=== PATIENT | male | born 1935 | race Caucasian/White ===

== ENCOUNTER 2016-07-20 10:14 | Inpatient (IN) | payer MEDICARE, OTHER ==
[~2016-07-20] VITALS: Ht 165.1 cm; Wt 75.2 kg
[2016-07-20] VITALS (8 sets, daily range): BP systolic 134–162; BP diastolic 52–87; PULSE 73–84; RESP 17–20; TEMP 96.8–98.1; O2SAT 92–97
[~2016-07-20 10:14] MED LIST: AMIT25TA9 PO; BIOT50005 PO; CLOB-23 TOPICAL; CO-EPOW; DILT120C15; GALA4TAB PO; IBUP200C PO; ISOS60TA PO; LEVO.125 PO; MIRA50TA PO; MULTTAB6; NITR0.4S SL; PLAV75TA29 PO; ROSU1TAB6 PO; ZETI10TA5 PO
[2016-07-20] MEDS ORDERED: ceFAZolin 2 GM PREMIX 50 ML IV SCH (11:00)
[2016-07-20 12:05] LABS: AUTOMATED NEUTROPHIL # 3.5 TH/MM3 (1.8-7.7); BASOPHIL % 0.7 % (0.0-2.0); EOSINOPHIL # 0.2 TH/MM3 (0-0.4); EOSINOPHIL % 3.7 % (0.0-4.0); HEMATOCRIT 38.4 % (39.0-51.0); HEMO FLAGS DIFF FINAL; LYMPH % 26.8 % (9.0-44.0); LYMPHOCYTE # 1.6 TH/MM3 (1.0-4.8); MEAN CELL VOLUME 90.9 FL (80.0-100.0); MEAN CORPUSCULAR HEMOGLOBIN 30.8 PG (27.0-34.0); MEAN CORPUSCULAR HGB CONC 33.8 % (32.0-36.0); MONO % 10.1 % (0.0-8.0); NEUT % 58.7 % (16.0-70.0); PLATELET COUNT 394 TH/MM3 (150-450); RED BLOOD COUNT 4.22 MIL/MM3 (4.50-5.90)
[2016-07-20 12:17] LABS: APTT (PATIENT) 25.6 SEC (24.3-30.1); PROTHROMBIN TIME - PATIENT 10.6 SEC (9.8-11.6)
[2016-07-20] MEDS ORDERED: fentaNYL CITRATE 250 MCG/5 ML AMP ONE (13:25)
[2016-07-20] MEDS ORDERED: MIDAZOLAM HCL 5 MG/5 ML VIAL ONE (13:25)
[2016-07-20] MEDS ORDERED: ONDANSETRON HCL 4 MG/2 ML VIAL IV PRN (15:00)
[2016-07-20] MEDS ORDERED: ACETAMINOPHEN 325 MG TAB PO PRN (15:00)
--- NOTE | 2016-07-20 15:10 | RADRPT ---
EXAM DATE/TIME: 07/20/2016 14:25 [facility] COMPARISON: No previous studies available for comparison. 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 MEDICAL HISTORY : History of TIA, CAD, HTN, hypothyroidism, prostate cancer. SURGICAL HISTORY : History of CABG, back surgery, hernia repair, colonoscopy, cataract removal. ENCOUNTER: Initial ACUITY: > 1 year PAIN SCORE: 0/10 LUMBAR PUNCTURE TIME: 1356 hours FLUORO TIME: 2.8 minutes IMAGE SERIES: 1 SEDATION TIME: 30 minutes ACCESS LEVEL: L2-3 FLUID: 10 cc of clear CSF was collected and sent to the laboratory for analysis. SEDATION: 1.) 2 mg midazolam (Versed) IV 2.) 100 mcg fentanyl (Sublimaze) IV PROCEDURE : 1. Fluoroscopic guided lumbar puncture. The risks, benefits and alternatives to the procedure were explained and verbal and written consent w as obtained. The site was prepped in sterile fashion. Full sterile technique was used, including ca p, mask, sterile gloves and gown and a large sterile sheet. Hand hygiene and 2% chlorhexidine and/or betadine/alcohol prep was utilized per protocol for cutaneous antisepsis. The skin and subcutaneous tissues were infiltrated with local anesthetic solution. With fluoroscopic guidance the lumbar thecal sac was punctured at the level above. The fluid describ ed above was removed without difficulty. The patient tolerated the procedure well and there were no complications. CONCLUSION: Uncomplicated fluoroscopically guided lumbar puncture. Santiago De La Rosa MD on July 20, 2016 at 15:09 Board Certified Radiologist. This report was verified electronically.
--- NOTE | 2016-07-20 15:10 | RADRPT ---
EXAM DATE/TIME: 07/20/2016 14:25 [facility] COMPARISON: No previous studies available for comparison. INDICATIONS : Patient is in need of placement of a lumbar drain due to NPH. MEDICAL HISTORY : History of TIA, CAD, HTN, hypothyroidism, prostate cancer. SURGIAL HISTORY : History of CABG, back surgery, hernia repair, colonoscopy, cataract removal. ENCOUNTER: Initial ACUITY: >1 year PAIN SCORE: 0/10 LUMBAR PUNCTURE TIME: 1356 hours FLUORO TIME: 2.8 minutes IMAGE SERIES: 1 SEDATION TIME: 30 minutes LEVEL: Tip of lumbar drain was placed at S1 FLUID: 10 cc of clear CSF was collected and sent to the laboratory for analysis. MEDICATION(S): 1.) 2 mg midazolam (Versed) IV 2.) 100 mcg fentanyl (Sublimaze) IV DEVICE(S): 1.) 5 [place]olan lumbar drain catheter PROCEDURE : 1. Fluoroscopically guided lumbar drain placement. 2. Conscious sedation with continuous EKG and oximetry monitoring. The risks, benefits and alternatives to the procedure were explained and verbal and written consent w as obtained. The site was prepped in sterile fashion. Full sterile technique was used, including ca p, mask, sterile gloves and gown and a large sterile sheet. Hand hygiene and 2% chlorhexidine and/or betadine/alcohol prep was utilized per protocol for cutaneous antisepsis. The skin and subcutaneous tissues were infiltrated with local anesthetic solution. With fluoroscopic guidance the lumbar thecal sac was punctured with a 14 gauge Touhy needle and a lum bar drain was placed with its tip at the level as described above and the catheter was sutured in long ce. CSF was identified returning from the catheter at the termination of the procedure. Conscious sedation was performed with the prescribed dosages and duration as above in the presence of an independent trained radiology nurse to assist in the monitoring of the patient. EKG and oximetry remained stable throughout the procedure. The patient tolerated the procedure well and there were n o complications. The patient was sent to post anesthesia recovery in stable condition. CONCLUSION: Uncomplicated lumbar drain placement as above. Santiago De La Rosa MD on July 20, 2016 at 15:08 Board Certified Radiologist. This report was verified electronically.
[2016-07-20 15:44] LABS: GROSS BLOOD TUBE #1 0 (0); GROSS BLOOD TUBE #2 0 (0); GROSS BLOOD TUBE #3 0 (0); SUPERNATE COLOR TUBE #1 CLEAR (CLEAR); SUPERNATE COLOR TUBE #2 CLEAR (CLEAR); SUPERNATE COLOR TUBE #3 CLEAR (CLEAR); SUPERNATE COLOR TUBE #4 CLEAR (CLEAR); VOLUME TUBE # 1 1.5 ML; VOLUME TUBE # 2 2.5 ML
[2016-07-20 15:45] LABS: CSF LYMPHOCYTES 79 %; CSF MONOCYTES 12 %; CSF NEUTROPHILS 9 %; WBC TUBE #4 9 /MM3 (0-10)
[2016-07-20 15:47] LABS: GROSS BLOOD TUBE #4 0 (0)
[2016-07-20] MEDS: SODIUM CHLOR 0.45% 1000 ML IV SCH (16:30)
[2016-07-21] VITALS: BP 147/73; PULSE 78; RESP 20; TEMP 97.8; O2SAT 94
[2016-07-21 08:42] VITALS: BP 105/57; PULSE 76; RESP 18; TEMP 97.9; O2SAT 95
[2016-07-21] MEDS: SODIUM CHLOR 0.45% 1000 ML IV SCH (10:49)
[2016-07-21 12:00] VITALS: BP 151/82; PULSE 61; RESP 18; TEMP 96.7; O2SAT 95
[2016-07-21 16:00] VITALS: BP 141/58; PULSE 79; RESP 18; TEMP 95.7; O2SAT 96
[2016-07-21] MEDS ORDERED: IBUPROFEN 200 MG TAB PO PRN (18:00)
[2016-07-21] MEDS ORDERED: NITROGLYCERIN 0.4 MG SL 25 TABS/BTL SL PRN (18:00)
[2016-07-21 20:00] VITALS: BP 173/89; PULSE 74; RESP 20; TEMP 97.3; O2SAT 95
[2016-07-21] MEDS ORDERED: CLOBETASOL TOPICAL SCH (21:00)
[2016-07-21] MEDS ORDERED: TOLTERODINE TARTRATE 4 MG CAP LA PO SCH (21:00)
[2016-07-21] MEDS: AMITRIPTYLINE HCL 25 MG TAB PO SCH (21:33)
[2016-07-21] MEDS: TOLTERODINE TARTRATE 4 MG CAP LA PO SCH (22:50)
[2016-07-21] MEDS: EZETIMIBE 10 MG TAB PO SCH (22:50)
[2016-07-21] MEDS: GALANTAMINE HYDROBROMIDE 4 MG TAB PO SCH (22:50)
--- NOTE | 2016-07-21 22:58 | HHI.NSPN ---
History Chief Complaint: no complaints Interval History 81-year-old male with progressive gait difficulty. Some memory loss and cognitive dysfunction. Recent imaging studies reveal moderate ventriculomegaly. Admitted for lumbar subarachnoid drain trial Exam Results Vital Signs Date Time Temp Pulse Resp B/P Pulse Ox O2 Delivery O2 Flow Rate FiO2 07/21/16 20:00 97.3 74 20 173/89 95 07/20/16 16:30 Room Air Intake and Output 07/20/16 07/20/16 07/21/16 08:00 16:00 00:00 Intake Total 444 ml Output Total 30 ml Balance 414 ml Physical Examination Respirations clear and regular Pulse regular Abdomen soft No extremity edema Sensation intact by touch all extremities Strength within normal limits all extremities Lumbar drain in place-functioning well. Clear CSF. Lab, Micro, Other Results Laboratory Tests Test 07/20/16 07/20/16 11:45 14:01 Red Blood Count 4.22 MIL/MM3 (4.50-5.90) Hematocrit 38.4 % (39.0-51.0) Monocytes (%) (Auto) 10.1 % (0.0-8.0) CSF RBC (Tube 4) 46 /MM3 (NONE) CSF Total Protein 54.4 MG/DL (15.0-45.0) Medical Decision Making Impression and Plan Impression: 1. Hydrocephalus. Possible NPH. 2. Hypertension Plan: Findings were discussed with the patient. He feels that his mentation has actually improved with the shunt in place. He states that he was able to converse fluently this morning. He usually has speech hesitancy. He states that his walking also seem to be improved. Physical therapy note is reviewed. Continued lumbar subarachnoid drain trial. Jasper White MD July 21, 2016 22:58
[2016-07-22] VITALS: BP 118/71; PULSE 70; RESP 20; TEMP 97; O2SAT 96
[2016-07-22 04:00] VITALS: BP 128/62; PULSE 75; RESP 20; TEMP 96; O2SAT 93
[2016-07-22] MEDS: LEVOTHYROXINE SODIUM 125 MCG TAB PO SCH (05:47)
[2016-07-22 08:00] VITALS: BP 123/72; PULSE 82; RESP 18; TEMP 97; O2SAT 96
[2016-07-22] MEDS: DILTIAZEM-CD 120 MG CAP ER PO SCH (08:21)
[2016-07-22] MEDS: GALANTAMINE HYDROBROMIDE 4 MG TAB PO SCH ×2 (08:22→20:55)
[2016-07-22] MEDS: EZETIMIBE 10 MG TAB PO SCH (08:22)
[2016-07-22] MEDS: ISOSORBIDE MONONITRATE 60 MG TAB PO SCH (08:22)
[2016-07-22] MEDS: SODIUM CHLOR 0.45% 1000 ML IV SCH (11:19)
[2016-07-22 12:00] VITALS: BP 96/53; PULSE 74; RESP 18; TEMP 97; O2SAT 96
--- NOTE | 2016-07-22 14:59 | HHI.NSPN ---
([facility]) Note Status Status: Progress Note ([facility]) Interval History Interval History 07/21: 81-year-old male with progressive gait difficulty. Some memory loss and cognitive dysfunction. Recent imaging studies reveal moderate ventriculomegaly. Admitted for lumbar subarachnoid drain trial 07/20. 07/22: Patient states he is doing good when seen this afternoon. He denies any headache. Nursing reports difficulty trying to keep the lumbar subarachnoid drain leveled due to the variable CSF output every 2 hours. Nursing reported that Physical Therapy reported that the patient's gait is better and not the wide gait he had. Physical Therapy had some concerns that the patient's left arm was not moving as it should when ambulating. ([facility]) Labs, Micro, & Vital Signs Constitutional Vital Signs Date Time Temp Pulse Resp B/P Pulse Ox O2 Delivery O2 Flow Rate FiO2 07/22/16 12:00 97.0 74 18 96/53 96 07/22/16 08:37 Room Air 07/22/16 08:00 97.0 82 18 123/72 96 07/22/16 04:00 96.0 75 20 128/62 93 07/22/16 00:00 97.0 70 20 118/71 96 07/21/16 20:00 97.3 74 20 173/89 95 07/21/16 16:00 95.7 79 18 141/58 96 07/22/16 07:00 Intake Total 1302 ml Output Total 1000 ml Balance 302 ml ([facility]) Review of Systems/Exam ROS Constitutional: The patient denies any fever or chills. Respiratory: The patient denies any shortness of breath or productive cough. Cardiac: The patient denies any chest pain, palpitations or irregular heartbeat. Gastrointestinal: The patient denies any abdominal pain, nausea or vomiting. Extremities: The patient denies any weakness or pain to the extremities. Back: The patient denies any back pain. Neurological: The patient states that initially his confusion improved but now it seems to be back where it was. He denies any headache, dizziness, numbness or tingling. Exam General: Resting comfortably, NAD. HEENT: Normocephalic, atraumatic. Respiratory: CTAB w/o W/R/R, equal excursion, non-laboured, on RA. Cardiovascular: S1S2 w/RRR w/o M/G/R, radial & pedal pulses 2+ bilaterally, cap refill < 2 sec, no pedal edema. Gastrointestinal: Abdomen soft, nontender, positive bowel sounds. Extremities: [place], NTTP, no evident deformity, discolouration or clubbing. Back: NTTP, lumbar subarachnoid drain in place w/clear CSF draining into collection system. Neurological: AAOx3 Speech clear & appropriate Sensation grossly intact to light touch to all extremities Motor strength 5/5 to all major flexion & extension muscle groups (Otf Guallpa) Medications Current Medications Current Medications Medications (Trade) Dose Ordered Sig/Nicolette Route Start Time Stop Time Status Last Admin (03/01 NS 1000 ml Inj) 1,000 ml @ 30 mls/hr Q24H IV 07/20/16 11:00 07/21/16 10:49 (Tylenol) 650 mg Q4H PRN PO 07/20/16 15:00 07/21/16 10:53 (Zofran Inj) 4 mg Q6H PRN IV 07/20/16 15:00 (Elavil) 25 mg HS PO 07/21/16 21:00 07/21/16 21:33 (Zetia) 10 mg DAILY PO 07/21/16 21:00 07/22/16 08:22 (Razadyne) 4 mg BID PO 07/21/16 21:00 07/22/16 08:22 (Advil) 200 mg Q6H PRN PO 07/21/16 18:00 (Imdur) 60 mg DAILY PO 07/22/16 09:00 07/22/16 08:22 (Synthroid) 125 mcg DAILY@06 PO 07/22/16 06:00 07/22/16 05:47 (Nitrostat Sl) 0.4 mg Q5M PRN SL 07/21/16 18:00 Patient Own Medication PT OWN MED: CORMAX (CLOBETAS... BID TOPICAL 07/21/16 21:00 Hold (Detrol La) 4 mg Q24H PO 07/21/16 22:00 07/21/16 22:50 (Cardizem Cd) 120 mg DAILY PO 07/22/16 09:00 07/22/16 08:21 (Otf Guallpa) Medical Decision Making MDM Remarks Impression: 1. Hydrocephalus. Possible NPH. 2. Hypertension Today Physical Therapy recommended home with no skilled needs The patient feels that his mentation may be back at what it was before the drain was placed although no hesitancy was noticed in his speech. He does feel his ambulation is better. Physical Therapy commented that the wide stance has resolved when ambulating. Some concern was expressed with how the left arm is during ambulation. (Otf Guallpa) Plan Plan Remarks Continue physical therapy. Continue lumbar subarachnoid drain trial. (Otf Guallpa) Attending Statement I have personally seen and examined the patient on 07/22/16. Pertinent documentation and study results have been reviewed by the undersigned. I have personally developed the treatment plan and performed medical decision making. Agree with findings, exam, and treatment plan as noted above. No headaches. States overall no definite change in his mentation compared to prior to the drain placement. His walking seems a little better. Plan discontinuation of the lumbar subarachnoid drain 07/23/16 with discharge home with no problems arise. Discussed home physical therapy with the patient which he declines at this time. (Jasper White MD) Otf [facility] July 22, 2016 14:59 Jasper White MD July 22, 2016 20:16
[2016-07-22 16:00] VITALS: BP 114/61; PULSE 72; RESP 18; TEMP 97.8; O2SAT 97
[2016-07-22 20:15] VITALS: BP 99/56; PULSE 70; RESP 19; TEMP 97.7; O2SAT 97
[2016-07-22] MEDS: TOLTERODINE TARTRATE 4 MG CAP LA PO SCH (20:55)
[2016-07-22] MEDS: AMITRIPTYLINE HCL 25 MG TAB PO SCH (20:55)
[2016-07-23] VITALS: BP 100/60; PULSE 66; RESP 18; TEMP 98; O2SAT 98
[2016-07-23 04:15] VITALS: BP 99/58; PULSE 69; RESP 20; TEMP 97.9; O2SAT 98
[2016-07-23] MEDS: LEVOTHYROXINE SODIUM 125 MCG TAB PO SCH (05:00)
[2016-07-23 08:10] VITALS: BP 124/64; PULSE 73; RESP 18; TEMP 96.3; O2SAT 96
[2016-07-23] MEDS: GALANTAMINE HYDROBROMIDE 4 MG TAB PO SCH (08:31)
[2016-07-23] MEDS: ISOSORBIDE MONONITRATE 60 MG TAB PO SCH (08:31)
[2016-07-23] MEDS: EZETIMIBE 10 MG TAB PO SCH (08:31)
[2016-07-23] MEDS: DILTIAZEM-CD 120 MG CAP ER PO SCH (08:31)
[2016-07-23] MEDS: SODIUM CHLOR 0.45% 1000 ML IV SCH (08:37)
[2016-07-23 11:55] VITALS: BP 118/58; PULSE 68; RESP 18; TEMP 97; O2SAT 97
[2016-07-23 15:50] VITALS: BP 112/54; PULSE 73; RESP 18; TEMP 97.3; O2SAT 96
--- NOTE | 2016-07-23 16:18 | HHI.DCPOC ---
Discharge Care Plan Diagnosis: (1) Hydrocephalus Your Health Problems Are: Incision/Drains Additional Problems Difficulty with ambulation Memory loss/confusion Goals to Promote Your Health * To prevent worsening of your condition and complications * To maintain your health at the optimal level Directions to Meet Your Goals Take your medications as prescribed Follow your dietary instruction Follow activity as directed Keep your appointments as scheduled Take your immunizations and boosters as scheduled If your symptoms worsen call your PCP, if no PCP go to Urgent Care Center or Emergency Room Smoking is Dangerous to Your Health. Avoid second hand smoke Call the 24-hour hour crisis hotline for domestic abuse at [facility] July 23, 2016 16:18
--- NOTE | 2016-07-23 16:23 | HHI.DS ---
Discharge Summary Admission Date July 20, 2016 at 16:50 Discharge Date: July 23, 2016 Admitting Diagnosis (1) Hydrocephalus Diagnosis: Principal ICD Code: G91.9 Procedures Procedure (): Lumbar subarachnoid drain placement CBC/BMP: 07/20/16 1145 Hospital Course The patient presented to [facility] on for placement of a lumbar subarachnoid drain for evaluation of NPH. He did well and his ambulation improved after placement although the patient thought his confusion/mentation remained the same. The drain was removed on and he did well after removal, therefore he was discharged home. Pt Condition on Discharge: Good Discharge Disposition: Discharge Home Discharge Instructions DIET: Follow Instructions for: As Tolerated, No Restrictions ACTIVITIES You can perform: Weight Bearing As John Paul Activities to Avoid: Lifting/Bending, Strenuous Activity Additional Information Follow up with Dr White in 1-2 weeks. Otf Guallpa July 23, 2016 16:23
[2016-08-13] MEDS ORDERED: MULT1TAB46 (13:19)
[2016-08-13] MEDS ORDERED: BIOTCAP PO (13:19)
== END 2016-07-23 19:07 | disposition home or self-care (01) | DRG 57 ==
LOC: HROP 10:14 → HRIP 10:15 → HROP 16:49 → N05B 16:50
PROVIDERS: ADMIT Neurological Surgery; ATTEND Neurological Surgery
PROC: 009U30Z Drainage of Spinal Canal with Drainage Device, Percutaneous Approach (ICD-10-PCS; principal; 2016-07-20)
DX: G91.2 (Idiopathic) normal pressure hydrocephalus (principal); G93.89 Other specified disorders of brain; G91.9 Hydrocephalus, unspecified; I10 Essential (primary) hypertension; I25.10 Atherosclerotic heart disease of native coronary artery without angina pectoris; E03.9 Hypothyroidism, unspecified; Z86.73 Personal history of transient ischemic attack (TIA), and cerebral infarction without residual deficits; Z85.46 Personal history of malignant neoplasm of prostate; Z95.1 Presence of aortocoronary bypass graft
CPT/HCPCS: 62270; 63741; 77003; 82945; 84157; 85025; 85610; 85730; 87015; 87070; 87102; 87116; 87205; 87206; 89051; 99152; 99153; C1755; J2250; J3010

== ENCOUNTER 2016-12-08 15:12 | Emergency (ER) | payer MEDICARE, OTHER ==
[~2016-12-08] VITALS: Ht 167.6 cm; Wt 74.3 kg
[~2016-12-08 15:12] MED LIST changes: -BIOT50005 PO; +BIOTCAP PO; +MULT1TAB46
[2016-12-08 15:17] VITALS: BP 183/80; PULSE 68; RESP 16; TEMP 98; O2SAT 97
--- NOTE | 2016-12-08 15:48 | PD ---
HPI Chief Complaint: Pain: Acute or Chronic Time Seen by Provider: 15:48 Travel History International Travel<30 days: No Contact w/Intl Traveler<30days: No Traveled to known affect area: No History of Present Illness HPI 81-year-old male presents to the emergency department for evaluation of left hip pain. Patient also reports vomiting. He states he vomited last night 4 times. He has not had any vomiting since. He has been able to eat. The patient states that he was getting up from a chair today when he had pain in his back that radiated to his left hip. He states that now he only has pain in his left hip, not his back. He does report history of chronic back pain and hip pain. However, this is worse than normal. He takes hydrocodone for pain which he took at 11 AM. He states that this did not take away his pain. He denies any fevers or chills. No chest pain or shortness of breath. No abdominal pain. No diarrhea or constipation. Patient states he is able to ambulate without difficulty. He states that frequent position changes to help his pain. Patient denies any loss of range of motion. He does report history of back surgery. He is currently on Plavix due to her history of cardiac bypass. PFSH Past Medical History Hx Anticoagulant Therapy: Yes (PLAVIX) Arthritis: Yes (UPPER BACK ) Asthma: No Atrial Fibrillation: Yes Autoimmune Disease: No Heart Rhythm Problems: No Cardiac Catheterization: Yes Cardiovascular Problems: Yes High Cholesterol: Yes (CONTROLLED WITH MEDICATION) Chest Pain: No Congestive Heart Failure: No COPD: No Cerebrovascular Accident: Yes (TIA, JUNE 2012, NOVEMBER 2015) Coronary Artery Disease: Yes Diabetes: No Diminished Hearing: No Endocrine: Yes GERD: No Genitourinary: Yes (OVERACTIVE BLADDER) Hepatitis: No Hiatal Hernia: No Hypertension: Yes (denies at present) Immune Disorder: No Inguinal Hernia: Yes (bilat repair) Kidney Stones: No Neurologic: Yes (ataxia) Psychiatric: No Reproductive: No Respiratory: No Immunizations Current: Yes Migraines: No Pneumonia: Yes Radiation Therapy: Yes (LAST TAKEN IN 2002) Renal Failure: No Seizures: No Sleep Apnea: No Thyroid Disease: Yes (HYPOTHYROID) Triglycerides - High: Yes Ulcer: No Influenza Vaccination: No ?: Not Past Surgical History Abdominal Surgery: Yes (DOUBLE HERNIA, EARLY ) AICD: No Arteriovenous Shunt: No Cardiac Surgery: Yes (MULTIPLE BYPASS, MAY 1999) Coronary Artery Bypass Graft: Yes (x2 vessels) Ear Surgery: No Endocrine Surgery: No Eye Surgery: Yes (CATARCT REMOVAL, 2015) Insulin Pump: No Joint Replacement: No Oral Surgery: No Pacemaker: No Other Surgery: Yes Family History Family Myocardial Infarction: Yes (FATHER) Social History Alcohol Use: Yes (occ) Tobacco Use: No (smoked cigs for one year) Substance Use: No Allergies-Medications (Allergen,Severity, Reaction): Coded Allergies: codeine (Unverified Allergy, Intermediate, NAUSEA, 12/08/16) Reported Meds & Prescriptions Reported Meds & Active Scripts Active Reported Hydrocodone-Acetaminophen 5-325 mg Tab 1 Tab PO Q6H PRN Multi Vitamin Daily (Multiple Vitamin) 1 Tab Tab Biotin 5 Mg Cap 5,000 Mcg PO Rosuvastatin (Rosuvastatin Calcium) 10 Mg Tab 10 Mg PO HS Amitriptyline (Amitriptyline HCl) 25 Mg Tab 25 Mg PO HS Galantamine (Galantamine Hydrobromide) 4 Mg Tab 4 Mg PO BID Ibuprofen 200 Mg Cap 200 Mg PO Q6H PRN Nitrostat SL (Nitroglycerin) 0.4 Mg Subl 0.4 Mg SL DIRECTED PRN 1 tablet under the tongue as needed for chest pain. Repeat every 5 minutes for a total of 3 DOSES or call 911 if NO relief. Diltiazem HCl ER (Diltiazem HCl Extended Release) 120 Mg Cap Isosorbide Mononitrate ER (Isosorbide Mononitrate) 60 Mg Tab 60 Mg PO DAILY Co-Enzyme Q10 (Bulk) (Coenzyme Q10) 1 Powd 100 Mg DAILY Zetia (Ezetimibe) 10 Mg Tab 10 Mg PO DAILY Myrbetriq (Mirabegron) 50 Mg Tab 50 Mg PO DAILY Plavix (Clopidogrel Bisulfate) 75 Mg Tab 75 Mg PO DAILY Synthroid (Levothyroxine Sodium) 125 Mcg Tab 125 Mcg PO DAILY Review of Systems Except as stated in HPI: all other systems reviewed are Neg Physical Exam Narrative GENERAL: Well-nourished, well-developed elderly male patient, afebrile. SKIN: Focused skin assessment warm/dry. HEAD: Normocephalic. Atraumatic EYES: No scleral icterus. No injection or drainage. NECK: Supple, trachea midline. No JVD or lymphadenopathy. CARDIOVASCULAR: Regular rate and rhythm without murmurs, gallops, or rubs. Bilateral radial and pedal pulses are 2+. RESPIRATORY: Breath sounds equal bilaterally. No accessory muscle use. Lungs sounds are clear to auscultation. GASTROINTESTINAL: Abdomen soft, non-tender, nondistended. MUSCULOSKELETAL: No cyanosis, or edema. Patient has tenderness over left hip joint. He has full range of motion without pain or stiffness. He has full sensation distal left lower extremity. No erythema, swelling, warmth over left hip. BACK: Nontender without obvious deformity. No CVA tenderness. No midline spinal tenderness. Data Data Last Documented VS Vital Signs Date Time Temp Pulse Resp B/P (MAP) Pulse Ox O2 Delivery O2 Flow Rate FiO2 12/08/16 18:13 12/08/16 17:12 76 18 98 Room Air 12/08/16 15:17 98.0 Orders Orders Complete Blood Count With Diff (12/08/16 15:46) Comprehensive Metabolic Panel (12/08/16 15:46) Prothrombin Time / Inr (Pt) (12/08/16 15:46) Act Partial Throm Time (Ptt) (12/08/16 15:46) Urinalysis - C+S If Indicated (12/08/16 15:46) Hip, Uni(Ap&Lat) W Ap Pelvis (12/08/16 15:46) Iv Access Insert/Monitor (12/08/16 15:46) Oximetry (12/08/16 15:46) Ecg Monitoring (12/08/16 15:46) Morphine Inj (Morphine Inj) (12/08/16 16:00) Ondansetron Inj (Zofran Inj) (12/08/16 16:00) Sodium Chloride 0.9% Flush (Ns Flush) (12/08/16 16:00) Acetamin-Hydrocod 325-5 Mg ([place] 5-325 (12/08/16 17:45) Ed Discharge Order (12/08/16 17:45) Labs Laboratory Tests Test 12/08/16 16:05 12/08/16 16:25 12/08/16 17:05 White Blood Count 9.0 TH/MM3 Red Blood Count 3.89 MIL/MM3 Hemoglobin 12.0 GM/DL Hematocrit 35.5 % Mean Corpuscular Volume 91.1 FL Mean Corpuscular Hemoglobin 30.8 PG Mean Corpuscular Hemoglobin Concent 33.8 % Red Cell Distribution Width 13.3 % Platelet Count 415 TH/MM3 Mean Platelet Volume 6.7 FL Neutrophils (%) (Auto) 74.5 % Lymphocytes (%) (Auto) 16.6 % Monocytes (%) (Auto) 6.0 % Eosinophils (%) (Auto) 2.0 % Basophils (%) (Auto) 0.9 % Neutrophils # (Auto) 6.7 TH/MM3 Lymphocytes # (Auto) 1.5 TH/MM3 Monocytes # (Auto) 0.5 TH/MM3 Eosinophils # (Auto) 0.2 TH/MM3 Basophils # (Auto) 0.1 TH/MM3 CBC Comment DIFF FINAL Differential Comment Prothrombin Time 10.7 SEC Prothromb Time International Ratio 1.0 RATIO Activated Partial Thromboplast Time 24.0 SEC Blood Urea Nitrogen 17 MG/DL Creatinine 0.95 MG/DL Random Glucose 146 MG/DL Total Protein 7.6 GM/DL Albumin 3.7 GM/DL Calcium Level 8.8 MG/DL Alkaline Phosphatase 95 U/L Aspartate Amino Transf (AST/SGOT) 19 U/L Alanine Aminotransferase (ALT/SGPT) 23 U/L Total Bilirubin 0.2 MG/DL Sodium Level 134 MEQ/L Potassium Level 3.9 MEQ/L Chloride Level 100 MEQ/L Carbon Dioxide Level 26.9 MEQ/L Anion Gap 7 MEQ/L Estimat Glomerular Filtration Rate 76 ML/MIN Urine Color YELLOW Urine Turbidity CLEAR Urine pH 7.0 Urine Specific [place] 1.017 Urine Protein 30 mg/dL Urine Glucose (UA) NEG mg/dL Urine Ketones NEG mg/dL Urine Occult Blood NEG Urine Nitrite NEG Urine Bilirubin NEG Urine Leukocyte Esterase NEG Urine WBC 0-2 /hpf Urine Squamous Epithelial Cells 0-5 /hpf Microscopic Urinalysis Comment CATH-CULT NOT IND MDM Medical Decision Making Medical Screen Exam Complete: Yes Emergency Medical Condition: Yes Medical Record Reviewed: Yes Interpretation(s) x-ray left hip with pelvis - CONCLUSION: Negative for fracture. Differential Diagnosis Acute exacerbation of chronic hip pain versus electrolyte abnormality versus unlikely fracture Narrative Course 81-year-old male presents to the emergency department for evaluation of worsening left hip pain as well as vomiting last night. He denies any current vomiting. Patient does appear well on exam. No evidence of septic joint. He has no back pains palpation. CBC, CMP, UA, PTT, PT/INR ordered and pending. X- ray left hip is ordered and pending. Patient is given Zofran 4 mg IV, morphine 4 mg IV. CBC shows no acute abnormality. CMP shows no acute abnormality. Coags are unremarkable. UA is negative for acute infection. X-ray of the left hip with pelvis shows no fracture. Laboratory findings and imaging is reassuring. I discussed the case with my attending physician, Dr. Thurston, who agrees with plan and disposition. This is acute exacerbation of his chronic pain. The patient was discharged in stable condition with instructions, including return instructions and follow up instructions. Diagnosis Primary Impression: Left hip pain Referrals: Primary Care Physician 2 days Patient Instructions: General Instructions, Hip Pain (ED) Additional Instructions: Continue hydrocodone as instructed as needed for pain. Follow-up with your primary care physician. Return to the emergency department for any acute worsening of symptoms. Med/Other Pt SpecificInfo: No Change to Meds Disposition: 01 DISCHARGE HOME Condition: Stable Karol Mathews Dec 08, 2016 15:48
[2016-12-08] MEDS ORDERED: ONDANSETRON HCL 4 MG/2 ML VIAL IVP ONE (16:00)
[2016-12-08] MEDS ORDERED: HYDR-3516 PO (16:00)
[2016-12-08] MEDS ORDERED: MORPHINE SULFATE 4 MG/ML INJ IV PUSH ONE (16:00)
[2016-12-08] MEDS ORDERED: SODIUM CHLORIDE 0.9% FLUSH 10 ML FLUSH IVF PRN (16:00)
[2016-12-08 16:11] VITALS: BP 169/65; PULSE 69; RESP 18; O2SAT 97
[2016-12-08 16:12] LABS: AUTOMATED NEUTROPHIL # 6.7 TH/MM3 (1.8-7.7); BASOPHIL # 0.1 TH/MM3 (0-0.2); BASOPHIL % 0.9 % (0.0-2.0); EOSINOPHIL # 0.2 TH/MM3 (0-0.4); HEMATOCRIT 35.5 % (39.0-51.0); HEMO FLAGS DIFF FINAL; LYMPH % 16.6 % (9.0-44.0); LYMPHOCYTE # 1.5 TH/MM3 (1.0-4.8); MEAN CELL VOLUME 91.1 FL (80.0-100.0); MEAN CORPUSCULAR HEMOGLOBIN 30.8 PG (27.0-34.0); MEAN CORPUSCULAR HGB CONC 33.8 % (32.0-36.0); NEUT % 74.5 % (16.0-70.0); PLATELET COUNT 415 TH/MM3 (150-450); RED BLOOD COUNT 3.89 MIL/MM3 (4.50-5.90); RED CELL DISTRIBUTION WIDTH 13.3 % (11.6-17.2)
[2016-12-08 16:29] LABS: PROTHROMBIN TIME - PATIENT 10.7 SEC (9.8-11.6)
[2016-12-08 16:44] LABS: CHLORIDE 100 MEQ/L (98-107); POTASSIUM 3.9 MEQ/L (3.5-5.1); SODIUM (NA) 134 MEQ/L (136-145)
--- NOTE | 2016-12-08 16:46 | RADRPT ---
EXAM DATE/TIME: 12/08/2016 15:51 [facility] COMPARISON: No previous studies available for comparison. INDICATIONS : Left hip pain from unknown injury. MEDICAL HISTORY : None. SURGICAL HISTORY : None. ENCOUNTER: Initial ACUITY: 1 day PAIN SCORE: 6/10 LOCATION: Left hip. FINDINGS: Examination of the left hip was performed with AP Pelvis. The primary and secondary trabecular patte rn of the femoral neck is intact. The hip joint is of normal width without significant sclerosis or bony hypertrophy. The acetabulum is grossly intact. CONCLUSION: Negative for fracture. Isaak Kevin MD FACR on December 08, 2016 at 16:44 Board Certified Radiologist. This report was verified electronically.
[2016-12-08 16:47] LABS: ANION GAP 7 MEQ/L (5-15); BICARBONATE 26.9 MEQ/L (21.0-32.0); BLOOD UREA NITROGEN 17 MG/DL (7-18)
[2016-12-08 16:50] LABS: ALT (GPT) 23 U/L (12-78); AST (GOT) 19 U/L (15-37); GLOMERULAR FILTRATION RATE 76 ML/MIN (>89)
[2016-12-08 16:52] LABS: TOTAL BILIRUBIN ADULT 0.2 MG/DL (0.2-1.0)
[2016-12-08 16:53] LABS: ALKALINE PHOSPHATASE 95 U/L (45-117)
[2016-12-08 17:12] VITALS: BP 172/78; PULSE 76; RESP 18; O2SAT 98
[2016-12-08 17:15] LABS: BLOOD, URINE NEG (NEG); GLUCOSE,URINE NEG (NEG); KETONE, URINE NEG (NEG); NITRITE,URINE NEG (NEG)
[2016-12-08 17:19] LABS: URINE COLOR YELLOW (YELLW/STRAW)
[2016-12-08 17:20] LABS: COMMENT (UR) CATH-CULT NOT IND; CULTURE IF INDICATED CATH CULTURE NOT IND; SQUAMOUS EPITHELIAL CELL URINE 0-5 /hpf (0-5); WBC, URINE 0-2 /hpf (0-5)
[2016-12-08] MEDS ORDERED: ACETAMINOPHEN/HYDROcodone 325 MG/5 MG TAB PO ONE (17:45)
== END 2016-12-08 18:15 | disposition home or self-care (01) ==
LOC: PHED 15:12
DX: M25.552 Pain in left hip (principal); M47.9 Spondylosis, unspecified; I48.91 Unspecified atrial fibrillation; E78.00 Pure hypercholesterolemia, unspecified; I25.10 Atherosclerotic heart disease of native coronary artery without angina pectoris; E03.9 Hypothyroidism, unspecified; Z79.01 Long term (current) use of anticoagulants
CPT/HCPCS: 73502; 80053; 81001; 85025; 85610; 85730; 96374; 96375; 99284; J2270; J2405

== ENCOUNTER 2016-12-17 11:26 | Emergency (ER) | payer MEDICARE, OTHER ==
[~2016-12-17] VITALS: Ht 167.6 cm; Wt 71.8 kg
[~2016-12-17 11:26] MED LIST changes: -CLOB-23 TOPICAL; +HYDR-3516 PO; -MULTTAB6
[2016-12-17 11:30] VITALS: BP 178/79; PULSE 69; RESP 16; TEMP 97.9; O2SAT 97
--- NOTE | 2016-12-17 12:22 | PD ---
HPI Chief Complaint: GI Complaint Time Seen by Provider: 11:56 Travel History International Travel<30 days: No Contact w/Intl Traveler<30days: No Traveled to known affect area: No History of Present Illness HPI This 81-year-old male presents with complaint of constipation. He says he has not had a good bowel movement for 4 or 5 days. He has a chronic problem with back pain. He had taken some Vicodin a few days ago and has not had a bowel movement since. He does take a fiber supplement. He did several enemas at 4: 00 this morning and says he passed all amounts of stool. He has chronic back pain which radiates into his hip. He denies abdominal pain. He has not had fever or chills. He has not had vomiting PFSH Past Medical History Hx Anticoagulant Therapy: Yes (PLAVIX) Arthritis: Yes (UPPER BACK ) Asthma: No Atrial Fibrillation: Yes Autoimmune Disease: No Heart Rhythm Problems: No Cardiac Catheterization: Yes Cardiovascular Problems: Yes ( HTN, CHOL, OPEN HEART SX) High Cholesterol: Yes (CONTROLLED WITH MEDICATION) Chest Pain: No Congestive Heart Failure: No COPD: No Cerebrovascular Accident: Yes (TIA) Coronary Artery Disease: Yes Diabetes: No Diminished Hearing: No Endocrine: Yes GERD: No Genitourinary: Yes (OVERACTIVE BLADDER) Headaches: No Hepatitis: No Hiatal Hernia: No Heparin Induced Thrombocytopen: No Hypertension: Yes (denies at present) Immune Disorder: No Inguinal Hernia: Yes (bilat repair) Kidney Stones: No Neurologic: Yes (ataxia) Psychiatric: No Reproductive: No Respiratory: No Immunizations Current: Yes Migraines: No Pneumonia: Yes Radiation Therapy: Yes (LAST TAKEN IN 2002) Renal Failure: No Seizures: No Sleep Apnea: No Thyroid Disease: Yes (HYPOTHYROID) Triglycerides - High: Yes Ulcer: No Past Surgical History Abdominal Surgery: Yes (DOUBLE HERNIA, EARLY ) AICD: No Arteriovenous Shunt: No Cardiac Surgery: Yes (MULTIPLE BYPASS, MAY 1999) Coronary Artery Bypass Graft: Yes (x2 vessels) Ear Surgery: No Endocrine Surgery: No Eye Surgery: Yes (CATARCT REMOVAL, 2016) Insulin Pump: No Joint Replacement: No Neurologic Surgery: No Oral Surgery: No Pacemaker: No Other Surgery: Yes Family History Family Myocardial Infarction: Yes (FATHER) Social History Alcohol Use: Yes (occ) Tobacco Use: No (smoked cigs for one year) Substance Use: No Allergies-Medications (Allergen,Severity, Reaction): Coded Allergies: codeine (Unverified Allergy, Intermediate, NAUSEA, 12/17/16) Reported Meds & Prescriptions Reported Meds & Active Scripts Active Reported Hydrocodone-Acetaminophen 5-325 mg Tab 1 Tab PO Q6H PRN Multi Vitamin Daily (Multiple Vitamin) 1 Tab Tab Biotin 5 Mg Cap 5,000 Mcg PO Rosuvastatin (Rosuvastatin Calcium) 10 Mg Tab 10 Mg PO HS Amitriptyline (Amitriptyline HCl) 25 Mg Tab 25 Mg PO HS Galantamine (Galantamine Hydrobromide) 4 Mg Tab 4 Mg PO BID Ibuprofen 200 Mg Cap 200 Mg PO Q6H PRN Nitrostat SL (Nitroglycerin) 0.4 Mg Subl 0.4 Mg SL DIRECTED PRN 1 tablet under the tongue as needed for chest pain. Repeat every 5 minutes for a total of 3 DOSES or call 911 if NO relief. Diltiazem HCl ER (Diltiazem HCl Extended Release) 120 Mg Cap Isosorbide Mononitrate ER (Isosorbide Mononitrate) 60 Mg Tab 60 Mg PO DAILY Co-Enzyme Q10 (Bulk) (Coenzyme Q10) 1 Powd 100 Mg DAILY Zetia (Ezetimibe) 10 Mg Tab 10 Mg PO DAILY Myrbetriq (Mirabegron) 50 Mg Tab 50 Mg PO DAILY Plavix (Clopidogrel Bisulfate) 75 Mg Tab 75 Mg PO DAILY Synthroid (Levothyroxine Sodium) 125 Mcg Tab 125 Mcg PO DAILY Review of Systems General / Constitutional: No: Fever, Chills Eyes: No: Diploplia, Blurred Vision HENT: No: Headaches, Vertigo Cardiovascular: No: Chest Pain or Discomfort, Palpitations Respiratory: No: Cough, Shortness of Breath Gastrointestinal: Positive: Constipation Genitourinary: No: Urgency, Frequency Musculoskeletal: Positive: Pain, No: Myalgias, Arthralgias Skin: No Rash, No Itching Neurologic: No: Weakness, Dizziness Endocrine: No: Heat Intolerance, Cold Intolerance Hematologic/Lymphatic: No: Easy Bruising Physical Exam Narrative GENERAL: Well-developed male SKIN: Focused skin assessment warm/dry. HEAD: Atraumatic. Normocephalic. EYES: Pupils equal and round. No scleral icterus. No injection or drainage. ENT: No nasal bleeding or discharge. Mucous membranes pink and moist. NECK: Trachea midline. No JVD. CARDIOVASCULAR: Regular rate and rhythm. No murmur appreciated. RESPIRATORY: No accessory muscle use. Clear to auscultation. Breath sounds equal bilaterally. GASTROINTESTINAL: Abdomen soft, non-tender, nondistended. Hepatic and splenic margins not palpable. On rectal exam is minimal stool and felt MUSCULOSKELETAL: No obvious deformities. No clubbing. No cyanosis. No edema. NEUROLOGICAL: Awake and alert. No obvious cranial nerve deficits. Motor grossly within normal limits. Normal speech. PSYCHIATRIC: Appropriate mood and affect; insight and judgment normal. Data Data Last Documented VS Vital Signs Date Time Temp Pulse Resp B/P (MAP) Pulse Ox O2 Delivery O2 Flow Rate FiO2 12/17/16 11:30 97.9 69 16 178/79 (112) 97 Orders Orders Abdomen, Kub Only (12/17/16 12:19) MDM Medical Decision Making Medical Screen Exam Complete: Yes Emergency Medical Condition: Yes Medical Record Reviewed: Yes Differential Diagnosis Differential includes constipation, bowel obstruction, Narrative Course Physical examination does not suggest constipation as he was not distended and the rectal exam showed a small amount of stool. A KUB was done and there was a significant amount of stool in the colon. Patient is not vomiting and will be treated at home with citrate of magnesia or GoLYTELY Diagnosis Primary Impression: Constipation Qualified Codes: K59.03 - Drug induced constipation Scripts Magnesium Citrate Liq (Citrate of Magnesia Liq) 300 Ml Liq 300 ML PO ONCE, #1 BOTTLE 0 Refills Prov: Fred Lozano MD 12/17/16 Peg-Electrolytes (Golytely 236 gm) 4,000 Ml Soln 4000 ML PO ONCE for Bowel Cleanser, #1 CONTAINER 0 Refills Prov: Fred Lozano MD 12/17/16 Disposition: DISCHARGE HOME Condition: Stable Fred Lozano MD Dec 17, 2016 12:22
--- NOTE | 2016-12-17 13:00 | RADRPT ---
EXAM DATE/TIME: 12/17/2016 12:41 [facility] COMPARISON: No previous studies available for comparison. INDICATIONS : Complains of back pain and constipation. MEDICAL HISTORY : None. SURGICAL HISTORY : None. ENCOUNTER: Initial ACUITY: 4 - 6 days PAIN SCORE: 6/10 LOCATION: Abdomen FINDINGS: Supine view of the abdomen was performed. The abdominal bowel gas pattern is normal. There is a mode rate diffuse stool throughout the entire colon. No abnormal dilatation of large or small bowel is see n. No definite calcifications are seen overlying the kidneys. The lung bases are grossly clear.. The osseous structures are unremarkable. CONCLUSION: Benign abdomen with a moderate amount of stool throughout the colon. Shravan Juarez MD on December 17, 2016 at 12:58 Board Certified Radiologist. This report was verified electronically.
[2016-12-17] MEDS ORDERED: MAGN1SOL2 PO (13:12)
[2016-12-17] MEDS ORDERED: COLY4000S PO (13:12)
== END 2016-12-17 13:46 | disposition home or self-care (01) ==
LOC: PHED 11:26
DX: K59.00 Constipation, unspecified (principal); Z79.01 Long term (current) use of anticoagulants; I48.91 Unspecified atrial fibrillation
CPT/HCPCS: 74000; 99284